=== PATIENT | female | born 1980 ===

== ENCOUNTER 2019-05-30 03:06 | Emergency (ER) | payer SELFPAY ==
--- NOTE | 2019-05-30 03:38 | EDM.PDOC ---
ED HPI GENERAL MEDICAL PROBLEM - General Chief Complaint: Syncope Stated Complaint: pt fainted at midnight Time Seen by Provider: 05/30/19 03:21 Source of Information: Reports: Patient History Limitations: Reports: No Limitations - History of Present Illness INITIAL COMMENTS - FREE TEXT/NARRATIVE: This is a 38-year-old female. Around midnight or so she got up to let the dog out which she did and then she let the dog back in and went to get some water for the dog picked up the bowl went to the sink and passed out. The time frame was about 10 minutes after she got out of bed as when she passed out. She did notice that when she first woke up she had a very harsh headache and burning in her face after she fell she hit the back of her head and she also had a slightly bloody nose but her headache was gone. She's had no headache since that time. She says her blood pressure usually runs fairly low and there are times when she gets out of bed she does get dizzy but that didn't seem to happen tonight. She also noted that she had a rapid heartbeat but no chest pain prior to passing out. She has no history of cardiac problems. She has no chest pain now and no palpitations afterwards. She comes to the ER because of these symptoms. She is not having any of these symptoms presently. - Related Data Allergies Allergy/AdvReac Type Severity Reaction Status Date / Time No Known Allergies Allergy Verified 05/30/19 03:17 Home Meds: Home Meds . [No Known Home Meds] 05/30/19 [History] Past Medical History - Past Health History Medical/Surgical History: Denies Medical/Surgical History Social & Family History - Family History Family Medical History: Noncontributory - Tobacco Use Smoking Status *Q: Never Smoker Second Hand Smoke Exposure: No - Caffeine Use Caffeine Use: Reports: Coffee ED ROS GENERAL - Review of Systems Review Of Systems: See Below Constitutional: Denies: Fever, Chills HEENT: Reports: No Symptoms, Other (Mild bloody nose that has resolved) Respiratory: Denies: Shortness of Breath, Cough Cardiovascular: Reports: Lightheadedness, Palpitations, Syncope. Denies: Chest Pain Endocrine: Reports: No Symptoms GI/Abdominal: Denies: Abdominal Pain, Nausea, Vomiting : Reports: No Symptoms Musculoskeletal: Reports: No Symptoms Skin: Reports: No Symptoms Neurological: Reports: Syncope. Denies: Difficulty Walking, Change in Speech Psychiatric: Reports: No Symptoms Hematologic/Lymphatic: Reports: No Symptoms - Physical Exam Exam: See Below Exam Limited By: No Limitations General Appearance: Alert, WD/WN, No Apparent Distress Eye Exam: Bilateral Eye: Normal Inspection, PERRL Ears: Normal External Exam, Normal Canal, Normal TMs Nose: Normal Inspection, Other (No blood noted, her nose is slightly slanted to the right that is normal for her and there is no change in her appearance) Throat/Mouth: Normal Inspection, Normal Lips, Normal Voice, No Airway Compromise Head Exam: Normocephalic Neck: Supple, Non-Tender Respiratory/Chest: No Respiratory Distress, Lungs Clear, Normal Breath Sounds Cardiovascular: Regular Rate, Rhythm, No Murmur GI/Abdominal: Soft Neuro Exam (Abbreviated): Alert, Oriented, CN II-XII Intact, Normal Cognition, Normal Gait, No Motor/Sensory Deficits Back Exam: Full Range of Motion Extremities: Normal Inspection, Normal Range of Motion Psychiatric: Normal Affect, Normal Mood Skin Exam: Warm, Dry EKG INTERPRETATION EKG Date: 05/30/19 Time: 03:40 EKG Interpretation Comments: EKG shows a normal sinus rhythm, no acute ST or T-wave changes and no ischemia noted Course - Vital Signs Last Recorded V/S: Last Vital Signs Temp 98.5 F 05/30/19 03:13 Pulse 75 05/30/19 03:13 Resp 16 05/30/19 03:13 BP 112/76 05/30/19 03:13 Pulse Ox 100 05/30/19 03:13 - Orders/Labs/Meds Orders: Active Orders 24 hr Category Date Time Status EKG 12 Lead [EKG Documentation Completion] [RC] STAT Care 05/30/19 03:32 Active Head wo Cont [CT] Stat Exams 05/30/19 03:31 Taken Labs: Laboratory Tests 05/30/19 05/30/19 Range/Units 03:50 03:50 WBC 6.56 (3.98-10.04) K/mm3 RBC 4.12 (3.98-5.22) M/mm3 Hgb 12.5 (11.2-15.7) gm/dl Hct 37.6 (34.1-44.9) % MCV 91.3 (79.4-94.8) fl MCH 30.3 (25.6-32.2) pg MCHC 33.2 (32.2-35.5) g/dl RDW Std Deviation 44.1 (36.4-46.3) fL Plt Count 229 (182-369) K/mm3 MPV 10.4 (9.4-12.3) fl Neut % (Auto) 73.8 H (34.0-71.1) % Lymph % (Auto) 17.4 L (19.3-51.7) % [place] % (Auto) 7.9 (4.7-12.5) % Eos % (Auto) 0.3 L (0.7-5.8) Baso % (Auto) 0.3 (0.1-1.2) % Neut # (Auto) 4.84 (1.56-6.13) K/mm3 Lymph # (Auto) 1.14 L (1.18-3.74) K/mm3 [place] # (Auto) 0.52 H (0.24-0.36) K/mm3 Eos # (Auto) 0.02 L (0.04-0.36) K/mm3 Baso # (Auto) 0.02 (0.01-0.08) K/mm3 Sodium 138 (136-145) mEq/L Potassium 4.3 (3.5-5.1) mEq/L Chloride 107 (98-107) mEq/L Carbon Dioxide 26 (21-32) mEq/L Anion Gap 9.3 (5-15) BUN 20 H (7-18) mg/dL Creatinine 0.8 (0.55-1.02) mg/dL Est Cr Clr Drug Dosing 77.33 mL/min Estimated GFR (MDRD) > 60 (>60) mL/min BUN/Creatinine Ratio 25.0 H (14-18) Glucose 116 H (74-106) mg/dL Calcium 8.7 (8.5-10.1) mg/dL Total Bilirubin 0.2 (0.2-1.0) mg/dL AST 15 (15-37) U/L ALT 23 (14-59) U/L Alkaline Phosphatase 68 (46-116) U/L Troponin I 0.038 (0.00-0.056) ng/mL Total Protein 7.3 (6.4-8.2) g/dl Albumin 3.7 (3.4-5.0) g/dl Globulin 3.6 gm/dL Albumin/Globulin Ratio 1.0 (1-2) - Radiology Interpretation Free Text/Narrative:: CT scan of the head does not show any acute intracranial abnormalities. - Re-Assessments/Exams Free Text/Narrative Re-Assessment/Exam: 05/30/19 05:09 I spoke to the patient regarding her CT scan and blood work and her orthostatic vital signs that are stable. I do not have an answer as to why she had a syncopal episode. However I encouraged her to follow up with her primary care physician with her history of palpitations prior to passing out she might have an arrhythmia that needs a Holter monitor. Her EKG was also normal. Departure - Departure Time of Disposition: 05:10 Disposition: Home, Self-Care 01 Condition: Good Clinical Impression: History of palpitations in adulthood Syncopal episodes Qualifiers: Syncope type: unspecified Qualified Code(s): R55 - Syncope and collapse - Discharge Information *PRESCRIPTION DRUG MONITORING PROGRAM REVIEWED*: Not Applicable *COPY OF PRESCRIPTION DRUG MONITORING REPORT IN PATIENT CAMI: Not Applicable Instructions: Syncope, [id number] Referrals: Maeve Murphy NP [Primary Care Provider] - Forms: ED Department Discharge Additional Instructions: You need to follow up with your primary care provider for continued workup of her syncopal episode with the additional history of having palpitations that occurred prior to your syncopal episode, if you have another syncopal episode before seeing your primary care provider return to the ER - My Orders Last 24 Hours: My Active Orders 05/30/19 03:31 Head wo Cont [CT] Stat 05/30/19 03:32 EKG 12 Lead [EKG Documentation Completion] [RC] STAT - Assessment/Plan Last 24 Hours: My Active Orders 05/30/19 03:31 Head wo Cont [CT] Stat 05/30/19 03:32 EKG 12 Lead [EKG Documentation Completion] [RC] STAT
--- NOTE | 2019-05-30 15:01 | CT ---
Head CT Technique: Multiple axial sections through the brain were obtained. Intravenous contrast was not utilized. Comparison: No prior intracranial imaging is available. Findings: Ventricles along with basal cisterns and sulci over the convexities are within normal limits for the patient's age. No abnormal parenchymal densities are seen. No evidence of intracranial hemorrhage. No midline shift or mass effect is seen. Bone window settings were reviewed which show the visualized paranasal sinuses to appear clear. Mastoid sinuses are also clear. No acute calvarial abnormality is appreciated. Impression: 1. Nothing acute is appreciated on noncontrast head CT exam. Diagnostic code #1 I agree with preliminary report from [facility], finalized on 05/30/19, 4:57 AM Central Time
== END 2019-05-30 05:18 | disposition home or self-care (01) ==
LOC: JD.ED 03:06
DX: R55 Syncope and collapse (principal); Z86.79 Personal history of other diseases of the circulatory system
CPT/HCPCS: 36415; 70450; 70450-26; 80053; 84484; 85025; 93005; 93010; 99283; 99284-25